=== PATIENT | male | born 1950 | race Caucasian/White ===

== ENCOUNTER → 2016-12-01 | Outpatient (CLI) | payer OTHER | LOC: BHFA 10:30 | PROVIDERS: ATTEND Internal Medicine Cardiovascular Disease | DX: I48.91 Unspecified atrial fibrillation (principal) ==

== ENCOUNTER → 2017-01-12 | Outpatient (CLI) | payer OTHER | LOC: BHFA 14:00 | PROVIDERS: ATTEND Internal Medicine Cardiovascular Disease | DX: R94.31 Abnormal electrocardiogram [ECG] [EKG] (principal); I48.91 Unspecified atrial fibrillation | CPT/HCPCS: 78452; 93017; A9500 ==

== ENCOUNTER 2017-01-19 07:05 | Inpatient (IN) | payer MEDICAID, OTHER ==
[~2017-01-19 07:05] MED LIST: ROPIVACAINE 0.2% 80 MG, EPINEPHrine 0.2 MG, KETOROLAC TROMETHAMINE 30 MG in BAG 0 ML IU ONE; TRANEXAMIC ACID 3,000 MG in NS 50 ML IRR ONE
[2017-01-19] MEDS ORDERED: DEXAMETHASONE 4 MG/ML VIAL IVP ONE (07:31)
[2017-01-19] MEDS ORDERED: ACETAMINOPHEN 325 MG TAB PO ONE (07:31)
[2017-01-19] MEDS ORDERED: FAMOTIDINE 20 MG TAB PO ONE (07:31)
[2017-01-19] MEDS ORDERED: ceFAZolin 2 GM/SWFI 2 GM/20 ML SYR IVP ONE (07:31)
[2017-01-19] MEDS ORDERED: LIDOCAINE 1% 2 ML INJ ID PRN (07:40)
[2017-01-19] MEDS ORDERED: LR 1,000 ML IV ONE (07:40)
[2017-01-19] MEDS ORDERED: TRANEXAMIC ACID 3,000 MG/50 ML BAG IRR ONE (08:37)
[2017-01-19] MEDS ORDERED: VANCOMYCIN 1 GM VIAL ONE (08:37)
[2017-01-19] MEDS ORDERED: MIDAZOLAM 2 MG/2 ML VIAL ONE (09:22)
[2017-01-19] MEDS ORDERED: MIDAZOLAM 2 MG/2 ML VIAL IVP ONE (09:23)
--- NOTE | 2017-01-19 09:24 | PDANEPAE ---
ANE History of Present Illness Patient presents for R TKA ANE Past Medical History - Cardiovascular History Hx Hypertension: No Hx Arrhythmias: Yes Hx Chest Pain: No Hx Coronary Artery / Peripheral Vascular Disease: No Hx CHF / Valvular Disease: No Hx Palpitations: No Cardiovascular History Comment: INTERMITTENT A-FIB REGULATED WITH RX - Pulmonary History Hx COPD: No Hx Asthma/Reactive Airway Disease: No Hx Recent Upper Respiratory Infection: No Hx Oxygen in Use at Home: No Hx Sleep Apnea: No Sleep Apnea Screening Result - Last Documented: Negative - Neurologic History Hx Cerebrovascular Accident: No Hx Seizures: No Hx Dementia: No - Endocrine History Hx Diabetes: No - Renal History Hx Renal Disorders: Yes Renal History Comment: NOCTURIA. ?BPH - Liver History Hx Hepatic Disorders: No - Neurological & Psychiatric Hx Hx Neurological and Psychiatric Disorders: No - Cancer History Hx Cancer: No - Congenital Disorder History Hx Congenital Disorders: No - GI History Hx Gastrointestinal Disorders: No - Other Health History Other Health History: OSTEOARTHRITIS - Chronic Pain History Chronic Pain: No - Surgical History Prior Surgeries: ABLATION FOR SVT 03/2015. TANIYA. TONSILLECTOMY ANE Review of Systems Review of Systems: - Exercise capacity METS (RN): 5 METS ANE Patient History - Allergies Allergies/Adverse Reactions: No Known Allergies Allergy (Verified 08/03/15 11:53) - Home Medications Home medications: home medication list seen and reviewed Home Medications: Gluc Brownlee/Chondro Brownlee A/Vit C/Mn [Glucosamine 1,500 Complex Cap] 1 each PO DAILY [Last Taken 01/07/17] Multivitamins [Multivitamin (*)] 1 each PO DAILY 08/03/15 [Last Taken 01/07/17] Simvastatin 40 mg PO DAILY 08/03/15 [Last Taken 01/18/17 07:00] Cyanocobalamin [Vitamin B12 (*)] 3,000 mcg PO DAILY 01/14/17 [Last Taken ] Diltiazem HCl [Diltiazem ER] 180 mg PO DAILY 01/14/17 [Last Taken 01/18/17 07:00 ] Propafenone HCl Sr [Rythmol Sr 325mg (*)] 325 mg PO BID 01/17/17 [Last Taken 07:00] - NPO status NPO Status: no food or drink >8 hours NPO Since - Liquids (Date): 01/18/17 NPO Since - Liquids (Time): 20:00 NPO Since - Solids (Date): 01/18/17 NPO Since - Solids (Time): 18:30 - Anes Hx Anes Hx: no prior problems - Smoking Hx Smoking Status: Former smoker ANE Labs/Vital Signs - Vital Signs Blood Pressure: 126/88 Heart Rate: 67 Respiratory Rate: 20 O2 Sat (%): 94 Height: 185.42 cm Weight: 97.522 kg ANE Physical Exam - Airway Neck exam: FROM Mallampati Score: Class 2 - Pulmonary Pulmonary: no respiratory distress - Cardiovascular Cardiovascular: regular rate and rhythym - ASA Status ASA Status: II, III ANE Anesthesia Plan Anesthesia Plan: spinal Regional Anesthesia: single shot NB (RBA discussed)
[2017-01-19] MEDS ORDERED: fentaNYL 100 MCG/2 ML INJ ONE (09:29)
[2017-01-19] MEDS ORDERED: PROPOFOL/EMULSION 500 MG/50 ML BOTTLE IV ONE ×2 (09:29→10:08)
[2017-01-19] MEDS ORDERED: ONDANSETRON 4 MG/2 ML VIAL ONE (10:14)
[2017-01-19] MEDS ORDERED: NALOXONE HCL 0.4 MG/ML INJ IVP PRN (10:40)
[2017-01-19] MEDS ORDERED: OXYCODONE/APAP 5/325 TAB PO PRN (10:40)
[2017-01-19] MEDS ORDERED: HYDROCODONE/APAP 5/325 TAB PO PRN (10:40)
[2017-01-19] MEDS ORDERED: LR 500 ML IV PRN (10:40)
[2017-01-19] MEDS ORDERED: fentaNYL 100 MCG/2 ML INJ IVP PRN (10:40)
[2017-01-19] MEDS ORDERED: ONDANSETRON 4 MG/2 ML VIAL IVP PRN ×2 (10:40→11:03)
--- NOTE | 2017-01-19 10:54 | PDHPUP ---
History & Physical Update H&P update statement: This history and physical update is based on an assessment of the patient which was completed after admission or registration (within 24 hours), but prior to the surgery/procedure. H&P update: H&P reviewed & patient examined, no change in patient's condition since H&P completed
[2017-01-19] MEDS ORDERED: BISACODYL 10 MG SUPP PR PRN (11:03)
[2017-01-19] MEDS ORDERED: ONDANSETRON DISINTEGRATING 4 MG TAB PO PRN (11:03)
[2017-01-19] MEDS ORDERED: CYCLOBENZAPRINE 10 MG TAB PO PRN (11:03)
[2017-01-19] MEDS ORDERED: METOCLOPRAMIDE 10 MG/2 ML VIAL IVP PRN (11:03)
[2017-01-19] MEDS ORDERED: PROMETHAZINE HCL 25 MG SUPPR PR PRN (11:03)
[2017-01-19] MEDS ORDERED: POLYETHYLENE GLYCOL 3350 17 GM PKT PO PRN (11:03)
[2017-01-19] MEDS ORDERED: LACTULOSE 20 GM/30 ML UDCUP PO PRN (11:03)
[2017-01-19] MEDS ORDERED: MAGNESIUM HYDROXIDE 30 ML UDCUP PO PRN (11:03)
[2017-01-19] MEDS ORDERED: diphenhydrAMINE 25 MG CAP PO PRN (11:03)
[2017-01-19] MEDS ORDERED: DIPHENOXYLATE/ATROPINE LOMOTIL 1 TAB PO PRN (11:03)
[2017-01-19] MEDS ORDERED: TEMAZEPAM 15 MG CAP PO PRN (11:03)
[2017-01-19] MEDS ORDERED: PROMETHAZINE HCL 25 MG/ML INJ IVP PRN (11:03)
--- NOTE | 2017-01-19 11:03 | POSTOPPROG ---
Post Op Note Date of Operation: 01/19/17 Surgeon: Medina Blum Rail Car Welder: thom blum Anesthesiologist: dr. connor Anesthesia: Spinal, Other (Specify) (adductor canal block) Pre-op Diagnosis: right knee OA Post-op Diagnosis: same Indication: right knee pain due to OA that failed conservative measures Procedure: R TKA Findings: severe knee OA Inf/Abcess present in the surg proc area at time of surgery?: No EBL: 50-100
[2017-01-19] MEDS ORDERED: LR 1,000 ML IV SCH (11:30)
--- NOTE | 2017-01-19 11:53 | POSTANESTH ---
Post Anesthetic Evaluation Cardiovascular Status: Similar to Pre-Op Cond Respiratory Status: Similar to Pre-op Cond. Level of Consciousness/Mental Status: Can Participate in Eval Pain Control: Adequate, Prn Tx Ordered Nausea/Vomiting Control: Adequate, Prn Tx Ordered Complications Possibly Related to Anesthesia: None Noted
[2017-01-19] MEDS: ACETAMINOPHEN 325 MG TAB PO SCH ×3 (13:28→23:06)
[2017-01-19] MEDS: DILTIAZEM CD 180 MG CAP PO SCH (14:45)
[2017-01-19] MEDS: oxyCODONE IR 5 MG TAB PO PRN ×4 (14:45→23:06)
[2017-01-19] MEDS: ceFAZolin 2 GM/DEXTROSE 100 ML IV SCH (18:19)
[2017-01-19] MEDS: SENNOSIDES/DOCUSATE SODIUM TAB PO SCH (19:39)
[2017-01-19] MEDS: FAMOTIDINE 20 MG TAB PO SCH (19:39)
[2017-01-19] MEDS: PROPAFENONE HCL SR 325 MG CAP PO SCH (19:40)
[2017-01-20] MEDS: ceFAZolin 2 GM/DEXTROSE 100 ML IV SCH (03:07)
[2017-01-20] MEDS: oxyCODONE IR 5 MG TAB PO PRN ×3 (03:09→10:44)
[2017-01-20 04:59] LABS: HEMATOCRIT 38.2 % (40.0-51.0); HEMOGLOBIN 13.7 g/dL (13.7-17.5)
[2017-01-20] MEDS: ACETAMINOPHEN 325 MG TAB PO SCH ×2 (07:16→12:16)
[2017-01-20 07:26] VITALS: BP 120/87; PULSE 69; RESP 14; TEMP 97.9; O2SAT 96
[2017-01-20] MEDS ORDERED: ATORVASTATIN CALCIUM 20 MG TAB PO SCH (09:00)
[2017-01-20] MEDS ORDERED: NON-FORMULARY NEW DRUG (Simvastatin [Simvastatin] 40 MG) PO SCH (09:00)
[2017-01-20] MEDS ORDERED: NON-FORMULARY NEW DRUG (Diltiazem Hcl [Diltiazem 24hr Er] 180 MG) PO SCH (09:00)
[2017-01-20] MEDS ORDERED: APIXABAN 5 MG TAB PO SCH (09:00)
[2017-01-20] MEDS: DILTIAZEM CD 180 MG CAP PO SCH (09:08)
[2017-01-20] MEDS: PROPAFENONE HCL SR 325 MG CAP PO SCH (09:08)
[2017-01-20] MEDS: FAMOTIDINE 20 MG TAB PO SCH (09:08)
[2017-01-20] MEDS: SENNOSIDES/DOCUSATE SODIUM TAB PO SCH (09:09)
--- NOTE | 2017-01-20 10:43 | SOAPPROG ---
SOAP Progress Note Assessment/Plan: Assessment: Patient is doing well POD 1 s/p R TKA Pain management: pain is well controlled on oral pain meds. VTE ppx: resume eliquis, cont NIKUNJ and SCDs Anemia: level is expected initially postop. Asymptomatic. Continue to monitor D/c planning: d/c to home today pending release from PT Plan: 01/20/17 10:41 Subjective: Tony is doing well today, denies SOB, chest pain and N/v Objective: Vital Signs Temp Pulse Resp BP Pulse Ox 36.6 C 69 14 120/87 H 96 01/20/17 07:25 01/20/17 07:25 01/20/17 07:25 01/20/17 07:25 01/20/17 07:25 Laboratory Results 01/20/17 04:37 01/19/17 01/20/17 01/21/17 05:59 05:59 05:59 Intake Total 385 Output Total 1300 Balance -915 RLE: incision dressing is clean and dry, NVI, +pf/df ICD10 Worksheet Patient Problems: Problems Problem Status Onset Primary localized osteoarthritis of right knee Acute Atrial fibrillation with rapid ventricular response Acute
--- NOTE | 2017-01-20 12:11 | ASDISCHSUM ---
Discharge Information Plan Status:Home with No Needs Medically Cleared to Leave: Discharge Date:01/20/2017 12:01 PM CM D/C Disposition:Home, Routine, Self-Care ADT D/C Disposition:Home, Routine, Self-Care Projected Discharge Date:01/20/2017 12:01 PM Transportation at D/C: Discharge Delay Reason: Follow-Up Date:01/20/2017 12:01 PM Discharge Slot: Final Diagnosis: Placement Information Patient Contact Information Contact Name:KASSANDRA Relationship: Address:[address] [place] [address] Work Phone: City:[place] Alternate Phone: [facility]/Zip Code:[place] [address] Email: Financial Information Financial Class:MC Primary Plan Desc:MEDICARE INPATIENT Primary Plan Number:[id number] Secondary Plan Desc: Secondary Plan Number: Assessment Information Intervention Information
--- NOTE | 2017-01-20 14:52 | GOP ---
[f rep st] OPERATIVE REPORT DATE OF OPERATION: 01/19/2017 SURGEON: Frank Narvaez MD CERTIFIED SKI PATROLLER: KIKA Montelongo ANESTHESIA: Spinal. PREOPERATIVE DIAGNOSIS: Right knee osteoarthritis. POSTOPERATIVE DIAGNOSIS: Right knee osteoarthritis. PROCEDURE PERFORMED: Right total knee arthroplasty. FINDINGS/PATHOLOGY: Severe patellofemoral osteoarthritis. ESTIMATED BLOOD LOSS: 30 cc. INDICATIONS: This is a 66-year-old male with severe and progressive pain and deformity of the right knee unresponsive to conservative care. Risks and benefits of the surgical intervention were explained in detail. DESCRIPTION OF PROCEDURE: The patient was brought to the operative room and placed on the table in the supine position. Spinal anesthesia was induced without difficulty. A pneumatic tourniquet was applied about the right proximal thigh, and the leg was prepped and draped in a sterile fashion. The leg jaime was applied. After exsanguination by elevation the tourniquet was inflated to 275 mm of mercury. Incision was made anterior medial from the tibial tuberosity to a point 2 cm proximal to the superior pole of the patella. Medial parapatellar arthrotomy was carried out from the superior pole of the patella and posteriorly in line with the fibers of the Type II VMO. The medial collateral ligament was elevated and the infrapatellar fat pad was resected. The patella was everted and the articular surface was excised. A 40 mm patellar button was placed. The distal femoral guide hole was drilled and the 6 degree alignment moriah was placed. A 10 mm distal femoral cut was made without difficulty. Attention was turned to the tibia and a standard 9 mm cut based on the lateral tibial condyle was performed. The tibial articular surface was excised without difficulty. Attention was turned back to the femur and a size 7 Triathlon femoral cutting block was positioned. Anterior, posterior, and chamfer cuts were made, followed by the intercondylar box cut. The knee was extended and the remnants of the medial and lateral meniscus were excised. The posterior capsule was injected with ropivacaine, epinephrine and Toradol. A size 7 MIS mini-keel ibial tray was positioned. Trial reduction was then carried out. There was excellent range of motion, alignment, and stability using the 9 mm polyethylene. All trials were then removed. The joint was thoroughly irrigated and carefully dried. Two packages of cement and 2 grams of vancomycin were mixed in the vacuum mixer and placed on the fixation surfaces of all surfaces of the components. The components were implanted and all excess cement was thoroughly removed. The permanent 9 mm polyethylene X3 was placed without difficulty. The tourniquet was deflated and all bleeders were coagulated. The wound was thoroughly irrigated and closed using interrupted sutures of 2-0 Vicryl for the joint capsule. The subcu was closed with 3-0 Vicryl and the skin with 4-0 Monocryl. Dermabond and Steri-Strips were applied followed by a compressive dressing. The patient was then moved from the operating room to the recovery room in good condition, having tolerated the procedure well. /[id number]/MODL MTDD
--- NOTE | 2017-01-21 18:49 | GDS ---
[f rep st] DISCHARGE SUMMARY ADMISSION DIAGNOSIS: Right knee osteoarthritis. DISCHARGE DIAGNOSIS: Right knee osteoarthritis. PROCEDURE: Right total knee arthroplasty VTE PROPHYLAXIS: Recommend patient resume Eliquis. BRIEF DESCRIPTION OF HOSPITAL STAY: Patient was admitted for an elective joint arthroplasty. The pa tient tolerated the procedure well and has passed physical therapy. The patient was given appropriat e antibiotic prophylaxis and venous thromboembolism prophylaxis. The patient's pain was well control led on oral pain medication, patient was holding down food, and had urinated. Decision was made to d ischarge the patient. The patient was given post-operative prescriptions pre-operatively. PLAN: To follow up with Dr. Narvaez at [facility] for Orthopedics in 2 to 3 weeks. /[id number]/MODL
== END 2017-01-20 12:01 | disposition home or self-care (01) | DRG 470 ==
LOC: F3N 07:05
PROVIDERS: ADMIT Orthopaedic Surgery; ATTEND Orthopaedic Surgery
PROC: 0SRC0J9 Replacement of Right Knee Joint with Synthetic Substitute, Cemented, Open Approach (ICD-10-PCS; principal; 2017-01-19 09:15)
DX: M17.11 Unilateral primary osteoarthritis, right knee (principal); I48.91 Unspecified atrial fibrillation; Z79.01 Long term (current) use of anticoagulants
CPT/HCPCS: 97110-GP; 97116-GP; 97161-GP; 97165-GO; C1713; G8978-GP-CI; G8979-GP-CI; G8980-GP-CI; G8987-GO-CI; G8988-GO-CI; G8989-GO-CI; J0171; J0690; J1100; J1885; J2250; J2405; J2704; J2795; J3010; J3370

== ENCOUNTER → 2017-02-09 | Outpatient (CLI) | payer OTHER, MEDICARE ==
[~2017-02-09] MED LIST changes: +IOPAMIDOL (ISOVUE 370) 100 ML BTL IV ONE; -ROPIVACAINE 0.2% 80 MG, EPINEPHrine 0.2 MG, KETOROLAC TROMETHAMINE 30 MG in BAG 0 ML IU ONE; -TRANEXAMIC ACID 3,000 MG in NS 50 ML IRR ONE
== END ==
LOC: FIMAGING 16:40
PROVIDERS: ATTEND Nurse Practitioner Family
DX: R79.89 Other specified abnormal findings of blood chemistry (principal); Z98.890 Other specified postprocedural states
CPT/HCPCS: 71275; Q9967

== ENCOUNTER 2017-06-28 08:05 | Observation (INO) | payer OTHER, MEDICAID ==
[2017-06-28] MEDS ORDERED: NS 1,000 ML IV ONE ×2 (08:10)
--- NOTE | 2017-06-28 08:13 | EDPHY ---
H & P Time Seen by Provider: 06/28/17 08:10 HPI/ROS: CHIEF COMPLAINT: Syncope HISTORY OF PRESENT ILLNESS: The patient is a 66-year-old man with a history of atrial fibrillation on Eliquis who has had watery diarrhea and vomiting for the last 3 days. He states that every time he stood up in the last 2 days he has felt lightheaded. Today stood up to go to the bathroom and fainted. He denies chest pain or palpitations. He fell onto a shelf and has abrasions to his forehead and a skin tear to his right elbow. He denies abdominal pain. He denies fevers. No blood in his stool or vomit. REVIEW OF SYSTEMS: Constitutional: denies: chills, fever, recent illness, recent injury EENTM: denies: blurred vision, double vision, nose congestion Respiratory: denies: cough, shortness of breath Cardiac: denies: chest pain, irregular heart rate, lightheadedness, palpitations Gastrointestinal/Abdominal: See HPI Genitourinary: denies: dysuria, frequency, hematuria, pain Musculoskeletal: denies: joint pain, muscle pain Skin: denies: lesions, rash, jaundice, bruising Neurological: denies: headache, numbness, paresthesia, tingling, dizziness, weakness Hematologic/Lymphatic: denies: blood clots, easy bleeding, easy bruising Immunologic/allergic: denies: HIV/AIDS, transplant EXAM: GENERAL: Moderate distress. HEAD: Atraumatic, normocephalic. EYES: Pupils equal round and reactive to light, extraocular movements intact, sclera anicteric, conjunctiva are normal. ENT: TMs normal, nares patent, oropharynx clear without exudates. Dry mucous membranes. NECK: Normal range of motion, supple without lymphadenopathy or JVD. LUNGS: Breath sounds clear to auscultation bilaterally and equal. No wheezes rales or rhonchi. HEART: Regular rate and rhythm without murmurs, rubs or gallops. ABDOMEN: Soft, nontender, normoactive bowel sounds. No guarding, no rebound. No masses appreciated. BACK: No CVA tenderness, no spinal tenderness, step-offs or deformities EXTREMITIES: Normal range of motion, no pitting or edema. No clubbing or cyanosis. NEUROLOGICAL: Cranial nerves II through XII grossly intact. Normal speech, normal gait. 5/5 strength, normal movement in all extremities, normal sensation PSYCH: Normal mood, normal affect. SKIN: Abrasion to left and right forehead. Does not require sutures. Is 3 cm skin tear to right elbow. Source: Patient - Personal History Tetanus Vaccine Date: < 10 years - Medical/Surgical History Hx Asthma: No Hx Chronic Respiratory Disease: No Hx Diabetes: No Hx Cardiac Disease: No Hx Renal Disease: No Hx Cirrhosis: No Hx Alcoholism: No Hx HIV/AIDS: No Hx Splenectomy or Spleen Trauma: No Other PMH: cholesterol, afib, SVT w/ ablation, cholecystectomy - Family History Significant Family History: No pertinent family hx - Social History Smoking Status: Former smoker Alcohol Use: Sober Drug Use: None Constitutional: Initial Vital Signs Temperature (C) 36.6 C 06/28/17 08:10 Heart Rate 117 H 06/28/17 08:10 Respiratory Rate 18 06/28/17 08:10 Blood Pressure 114/91 H 06/28/17 08:10 O2 Sat (%) 97 06/28/17 08:10 O2 Delivery Mode Room Air O2 (L/minute) 2 Allergies/Adverse Reactions: No Known Allergies Allergy (Verified 08/03/15 11:53) Home Medications: Medication Instructions Recorded Gluc Brownlee/Chondro Brownlee A/Vit C/Mn 1 each PO DAILY 08/03/15 [Glucosamine 1,500 Complex Cap] Multivitamins [Multivitamin (*)] 1 each PO DAILY 08/03/15 Simvastatin 40 mg PO DAILY 08/03/15 Apixaban [Eliquis] 5 mg PO BID #120 tab 08/28/15 Diltiazem HCl [Diltiazem 24Hr ER] 180 mg PO DAILY 01/14/17 Propafenone HCl Sr [Rythmol Sr 325 mg PO BID 01/17/17 325mg (*)] Medical Decision Making - Diagnostics EKG Interpretation: An EKG obtained and was read and documented in trace view. Please see trace view for full reading and report. Atrial fibrillation, PVC, similar to previous Imaging Results: Imaging Impressions Head CT 06/28/17 08:10 Impression: 1. No significant intracranial abnormality seen. 2. Soft tissue contusion over the left frontal bone without underlying fracture. If symptoms worsen, additional imaging may be necessary. Findings discussed with Jennifer Pérez M.D. at 8:57 hour, 06/28/2017. Chest X-Ray 06/28/17 08:42 Impression: 1. New mild compressions of T6,T7,T8 and T9 of unknown acuity. Correlation with symptoms is recommended. 2. Chronic or recurrent airways disease/COPD. 3. No rib fracture identified. 4. Increased paraspinal density of uncertain clinical etiology. Consider CT for further evaluation. Differential diagnosis includes hiatal hernia ,aortic aneurysm and mass of other etiology. Results discussed with Dr. Ward at 9:[address] 06/28/17 09:47 Impression: 1. The low left paraspinal density seen on chest x-rays a combination of benign aortic tortuosity and hiatal hernia. 2. No acute posttraumatic abnormality identified. Results called and discussed with JENNIFER PÉREZ, at 06/28/2017 10:35 General information for patients regarding this examination can be found at [email or web address]. If you have questions or comments about this report, please contact me at (hospital) or [phone] (cell). Imaging: Discussed imaging studies w/ high school chemistry teacher Radiologist ED Course/Re-evaluation: 9:30 a.m. patient still feels slightly lightheaded when standing. He has not received much fluid yet. His is here and is nervous about taking him home. His head CT is reassuring 10:45 a.m.. The patient still feels slightly lightheaded when standing. He has received 2 L of fluid. His chest CT reveals no fractures and the abnormality seen on x-ray is a hiatal hernia and a tortuous aorta. For still remains very anxious about taking him home. Will admit for further hydration and arrhythmia management. His heart rate is between 110 and 140. He is receiving his p.o. Medications now. 10:55 a.m. I discussed the case with Connie sebastian accepted for Dr. Oconnor. Differential Diagnosis: Partial list of the Differential diagnosis considered include but were not limited to; dehydration, syncope, atrial fibrillation, and although unlikely based on the history and physical exam, I also considered acute coronary disease , PE seizure, head injury. - Data Points Laboratory Results: Laboratory Results 06/28/17 09:03 06/28/17 09:03 06/28/17 06/28/17 06/28/17 09:03 09:03 09:03 WBC 7.64 10^3/uL 10^3/uL (3.80-9.50) RBC 4.57 10^6/uL 10^6/uL (4.40-6.38) Hgb 15.8 g/dL g/dL (13.7-17.5) Hct 44.7 % % (40.0-51.0) MCV 97.8 fL fL (81.5-99.8) MCH 34.6 pg H pg (27.9-34.1) MCHC 35.3 g/dL g/dL (32.4-36.7) RDW 12.9 % % (11.5-15.2) Plt Count 193 10^3/uL 10^3/uL (150-400) MPV 8.9 fL fL (8.7-11.7) Neut % (Auto) 77.5 % H % (39.3-74.2) Lymph % (Auto) 12.6 % L % (15.0-45.0) Banks % (Auto) 9.2 % % (4.5-13.0) Eos % (Auto) 0.0 % L % (0.6-7.6) Baso % (Auto) 0.3 % % (0.3-1.7) Nucleat RBC Rel Count 0.0 % % (0.0-0.2) Absolute Neuts (auto) 5.93 10^3/uL 10^3/uL (1.70-6.50) Absolute Lymphs (auto) 0.96 10^3/uL L 10^3/uL (1.00-3.00) Absolute Monos (auto) 0.70 10^3/uL 10^3/uL (0.30-0.80) Absolute Eos (auto) 0.00 10^3/uL L 10^3/uL (0.03-0.40) Absolute Basos (auto) 0.02 10^3/uL 10^3/uL (0.02-0.10) Absolute Nucleated RBC 0.00 10^3/uL 10^3/uL (0-0.01) Immature Gran % 0.4 % % (0.0-1.1) Immature Gran # 0.03 10^3/uL 10^3/uL (0.00-0.10) PT 12.5 SEC SEC (12.0-15.0) INR 0.91 (0.83-1.16) APTT 22.4 SEC L SEC (23.0-38.0) Sodium 140 mEq/L mEq/L (135-145) Potassium 3.5 mEq/L mEq/L (3.5-5.2) Chloride 104 mEq/L mEq/L (97-110) Carbon Dioxide 19 mEq/l L mEq/l (22-31) Anion Gap 17 mEq/L H mEq/L (8-16) BUN 26 mg/dL H mg/dL (7-23) Creatinine 1.0 mg/dL mg/dL (0.7-1.3) Estimated GFR > 60 Glucose 120 mg/dL H mg/dL (70-100) Calcium 9.0 mg/dL mg/dL (8.5-10.4) Medications Given: Diltiazem HCl (Cardizem Er Q24hr) 180 mg PO DAILY JUSTIN Stop: 12/25/17 09:44 Last Admin: 06/28/17 11:08 Dose: 180 mg Discontinued Medications Sodium Chloride (Ns) 1,000 mls @ 0 mls/hr IV ONCE ONE; Wide Open PRN Reason: Protocol Stop: 06/28/17 08:11 Last Admin: 06/28/17 08:19 Dose: 1,000 mls Sodium Chloride (Ns) 1,000 mls @ 0 mls/hr IV ONCE ONE; Wide Open PRN Reason: Protocol Stop: 06/28/17 08:11 Last Admin: 06/28/17 08:43 Dose: 1,000 mls Ketorolac Tromethamine (Toradol) 15 mg IVP EDNOW ONE Stop: 06/28/17 09:29 Last Admin: 06/28/17 09:32 Dose: 15 mg Oxycodone/Acetaminophen (Percocet 5/325) 2 tab PO EDNOW ONE Stop: 06/28/17 11:04 Last Admin: 06/28/17 11:08 Dose: 2 tab Propafenone HCl (Rythmol Sr) 325 mg PO Q12HRS JUSTIN Stop: 12/25/17 09:44 Last Admin: 06/28/17 11:08 Dose: 325 mg Tetracaine/Epinephrine/Lidocaine (Let Gel Topical) 1 ea TP EDNOW ONE Stop: 06/28/17 08:39 Last Admin: 06/28/17 08:42 Dose: 1 ea Departure - Departure Disposition: [facility] Inpatient Acute Clinical Impression: Syncope and collapse, Atrial fibrillation with rapid ventricular response, Chest wall pain, Dehydration Condition: Fair
--- NOTE | 2017-06-28 08:21 | CPEKG ---
Heart Rate: 121 RR Interval: 496 QRSD Interval: 98 QT Interval: 360 QTC Interval: 511 QRS [place]: 73 T Wave [place]: -44 EKG Severity - ABNORMAL ECG - EKG Impression: ATRIAL FIBRILLATION, V-RATE 91-155 EKG Impression: ABERRANT COMPLEX, POSSIBLY SUPRAVENTRICULAR EKG Impression: NONSPECIFIC T ABNORMALITIES, LATERAL LEADS EKG Impression: PROLONGED QT INTERVAL EKG Impression: Similar to July 2015 Electronically Signed By: Dirk Pérez 28-Jun-2017 08:33:59
[2017-06-28] MEDS ORDERED: LET GEL TOPICAL 1 EA SYR TP ONE (08:38)
[2017-06-28 09:07] LABS: PLATELET COUNT 193 10^3/uL (150-400)
[2017-06-28 09:19] LABS: INR 0.91 (0.83-1.16); PROTIME(PATIENT) 12.5 SEC (12.0-15.0)
[2017-06-28] MEDS ORDERED: KETOROLAC 15 MG/1 ML SDV IVP ONE (09:28)
[2017-06-28] MEDS ORDERED: DILTIAZEM CD 180 MG CAP PO SCH (09:45)
[2017-06-28] MEDS ORDERED: PROPAFENONE HCL SR 325 MG CAP PO SCH (09:45)
[2017-06-28] MEDS ORDERED: IOPAMIDOL (ISOVUE-300) 100 ML BTL ONE (10:00)
[2017-06-28] MEDS ORDERED: BACITRACIN OINTMENT 1 PACKET TP ONE (10:31)
[2017-06-28] MEDS ORDERED: OXYCODONE/APAP 5/325 TAB PO ONE (11:03)
--- NOTE | 2017-06-28 12:40 | PDGENHP ---
History and Physical History and Physical: CC: Syncope with lightheadedness and gastroenteritis symptoms HISTORY: This patient has been having nausea vomiting diarrhea for the last 2- 3 days and has developed for at least 2 days now significant symptoms of orthostasis. Today at home had a syncopal spell upon standing. 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 I have reviewed the list and ordered appropriate medicines. PHYSICAL EXAMINATION: Vital Signs: Remains tachycardic after IV fluid 2 L given in the ER, blood pressures are good, otherwise respirations and temperature is normal Engineer Systems: Rapid atrial fibrillation Examination: General: alert, oriented, good mentation, relaxed Skin: warm, dry, good color, no rash HEENT: normal Neck: no mass or jvd Resps: relaxed Lungs: clear breath sounds Heart: regular, no murmur Abdomen: soft, nondistended, nontender, +BS, no mass Upper Extremities: normal Lower Extremities: no edema, warm No Bleeding or bruising Neurologic: normal speech/language, normal b2b appointment setter, no focal weakness IV site: looks normal LABORATORY DATA: Chem panel - BUN is elevated, CO2 slightly low, glucose slightly high at 120 Unremarkable CBC I have ordered stool pathogen panel which is currently pending RADIOLOGY STUDIES: CT scan of head, done in the ER, my review of images: Chest x-ray, my review of images: Unremarkable chest x-ray other than tortuosity of aorta CT scan chest, my review of images: Tortuosity of the aorta again present, no evidence of acute fracture in the spine or ribs, no pleural effusions or heart failure 12 LEAD EKG: Rapid atrial fibrillation without other specific acute abnormalities, 1 PVC is present ASSESSMENT: -syncope due to hypovolemia and orthostasis -acute gastroenteritis * Suspect viral but will get GI pathogen panel to assess for possible cause * Notably his had the same illness 2 days before him and she had just eaten oysters, raises question of possible hepatitis a -tachycardia, * primarily likely due to his hypovolemia as opposed to primarily rapid atrial fibrillation but is in currently rapid atrial fibrillation; notably he did not get his diltiazem the last couple days and is possible that he is more tachycardic due to that as well -paroxysmal atrial fibrillation, currently in AFib; history of ablation currently on anti arrhythmic * On diltiazem and anticoagulation at home -pre renal azotemia -fall from syncope with acute closed head injury, no evidence of intracranial injury or concussion PLANS: -continue IV hydration, fall risk precautions -check GI pathogen panel -check hepatitis a serologies -he was given diltiazem in the ER, will not give any more diltiazem until we see that his blood pressure and orthostatic vitals will remain stable and that is not risk for more falls -continue his anticoagulation and his antiarrhythmic I have reviewed the patient's case in detail with Dr. Pérez I have reviewed the patient's past medical records as part of this assessment, including previous hospital admission records at this hospital
[2017-06-28] MEDS ORDERED: ONDANSETRON 4 MG/2 ML VIAL IVP PRN (12:57)
[2017-06-28] MEDS ORDERED: ZOLPIDEM TARTRATE 5 MG TAB PO PRN (12:57)
[2017-06-28] MEDS ORDERED: ACETAMINOPHEN 325 MG TAB PO PRN (12:57)
[2017-06-28] MEDS ORDERED: NS 1,000 ML IV SCH (13:00)
[2017-06-28] MEDS ORDERED: OXYCODONE/APAP 5/325 TAB PO PRN (17:24)
[2017-06-28] MEDS: KETOROLAC 15 MG/1 ML SDV IVP SCH ×2 (18:20→23:08)
[2017-06-28] MEDS: PROPAFENONE HCL SR 325 MG CAP PO SCH (20:47)
[2017-06-28] MEDS: APIXABAN 5 MG TAB PO SCH (20:47)
[2017-06-29] MEDS: KETOROLAC 15 MG/1 ML SDV IVP SCH (05:49)
[2017-06-29 07:26] VITALS: BP 106/66
[2017-06-29] MEDS: PROPAFENONE HCL SR 325 MG CAP PO SCH (08:53)
[2017-06-29] MEDS: APIXABAN 5 MG TAB PO SCH (08:53)
[2017-06-29] MEDS ORDERED: ATORVASTATIN CALCIUM 20 MG TAB PO SCH (09:00)
--- NOTE | 2017-06-29 10:54 | PDDCSUM ---
Discharge Summary Discharge Summary: DISCHARGE DIAGNOSES: -acute syncope from orthostatic hypotension and dehydration -acute gastroenteritis due to norovirus -dehydration due to gastroenteritis -scalp laceration due to fall from his syncope -rib cage contusion without fracture due to fall from a syncope -chronic atrial fibrillation on anticoagulant and rate control, stable during this admission PROCEDURES: CT scan of head without contrast showing no evidence of intracranial injury CT scan of chest showing no evidence of intrathoracic injury or rib fracture; the soft tissue prominence in the lower mediastinum seen on x-ray was shown to be a tortuous aorta on the CT scan HOSPITAL COURSE SUMMARY: This patient became ill with vomiting and diarrhea after his had been ill for a couple days with similar illness. The has since recovered. He was having vomiting and profuse diarrhea every 30 min. There was no blood or abdominal pain or fever. However he began to notice significant orthostatic symptoms. On the day of admission the patient stood up and walked a few feet suffered a syncope. As he awoke he had a scalp laceration and sore ribs. He presented to the ER still quite orthostatic. After 2 L of fluid in the ER he remained significantly orthostatic so was placed in observation in the hospital. He received continuing IV fluids. At this time he has recovered fully in terms of normalized vital signs and elimination of his orthostatic symptoms. He is able to get walk without difficulty. He is no longer vomiting and is eating and drinking well and his diarrhea has slowed down and all but stopped at this point. It is felt that he will be able to hydrate himself well and he is safe on his feet so he is stable for discharge. The patient does have norovirus in the stool on testing here and this is certainly the cause of his illness. He is warned to not share food with or prepare food for other people, and have meticulous hygiene for the next 2 weeks. PENDING TEST RESULTS: None MEDICATION CHANGES: None FOLLOW-UP PLAN: Keep well hydrated Meticulous hand hygiene Follow up with primary care physician if symptoms do not resolve Greater than 35 minutes bedside and care coordination time today
== END 2017-06-29 10:20 | disposition home or self-care (01) ==
LOC: EDUNIT# → F3E 12:00
PROVIDERS: ADMIT Internal Medicine; ATTEND Internal Medicine
DX: R55 Syncope and collapse (principal); E86.0 Dehydration; K52.9 Noninfective gastroenteritis and colitis, unspecified; S01.01XA Laceration without foreign body of scalp, initial encounter; S20.20XA Contusion of thorax, unspecified, initial encounter; I48.2 Chronic atrial fibrillation; Z79.01 Long term (current) use of anticoagulants
CPT/HCPCS: 70450; 71046; 71260; 93005; 96361; 96374; 99285; G0378; J1885; Q9967; G0390